=== PATIENT | male | born 1975 | race Caucasian/White ===

== ENCOUNTER 2017-11-20 17:11 | Observation (INO) | payer MEDICAID ==
[~2017-11-20] VITALS: Ht 175.3 cm; Wt 84.1 kg
[~2017-11-20 17:11] MED LIST: DIGO125T97 PO; METO50TA17 PO
[2017-11-20] MEDS ORDERED: normal saline 1000ml 1,000 ML IV ONE (17:23)
[2017-11-20] MEDS ORDERED: normal saline 1000ML IV soln IVB ONE (17:25)
[2017-11-20] MEDS ORDERED: LORazepam 2 mg/ml vial IV ONE (17:25)
[2017-11-20 17:46] LABS: BASOPHILS % (AUTO) 0.2 % (0-1); EOSINOPHILS % (AUTO) 0.1 % (0-6); HEMATOCRIT 45.8 % (42.0-52.0); HEMOGLOBIN 15.5 g/dl (14.0-17.9); LYMPHOCYTES # (AUTO) 0.8 X10'3 (1.1-4.8); LYMPHOCYTES % (AUTO) 5.3 % (21-51); MEAN CORPUSCULAR HEMOGLOBIN 30.4 PG (27.0-31.0); MEAN CORPUSCULAR HGB CONC 33.8 % (33.0-36.5); MEAN PLATELET VOLUME 7.4 FL (7.4-10.4); MONOCYTES # (AUTO) 0.5 X10'3 (0-0.9); MONOCYTES % (AUTO) 3.2 % (2-12); NEUTROPHILS # (AUTO) 13.7 X10'3 (1.8-7.7); NEUTROPHILS % (AUTO) 91.2 % (42-75); PLATELET COUNT 143 X10'3 (140-440); RED BLOOD COUNT 5.09 X10'6 (4.70-6.10); RED CELL DISTRIBUTION WIDTH 13.5 % (11.5-14.5)
[2017-11-20 17:55] LABS: PARTIAL THROMBOPLASTIN TIME 24 SECONDS (22-32)
[2017-11-20 18:08] LABS: ALANINE AMINOTRANSFERASE 46 U/L (12-78); ALBUMIN 4.2 G/DL (3.4-5.0); ALBUMIN/GLOBULIN RATIO 1.4 (1.1-1.5); ALKALINE PHOSPHATASE 81 IU/L (46-116); ANION GAP 14 (8-16); ASPARTATE AMINO TRANSFERASE 26 U/L (10-37); BILIRUBIN,TOTAL 1.5 MG/DL (0.1-1.0); BLOOD UREA NITROGEN 20 MG/DL (7-18); BUN/CREATININE RATIO 15.7 (5.4-32.0); CALCIUM 9.5 MG/DL (8.5-10.1); CHLORIDE 106 MMOL/L (99-107); CREATINE KINASE 205 U/L (39-308); CREATININE 1.27 MG/DL (0.60-1.10); ETHANOL < 0.010 GM/DL (0.0-0.010); GLUCOSE 153 MG/DL (70-104); MAGNESIUM 1.8 MG/DL (1.5-2.4); SODIUM 145 MMOL/L (135-145); TOTAL CARBON DIOXIDE 24.7 MMOL/L (24-32); TOTAL PROTEIN 7.3 G/DL (6.4-8.2); eGFR 62 ML/MIN
[2017-11-20] MEDS ORDERED: DABI150C PO (19:38)
[2017-11-20] MEDS ORDERED: METO-539 PO (19:38)
[2017-11-20] MEDS ORDERED: PROP325C PO (19:38)
[2017-11-20] MEDS ORDERED: temazepam 15mg capsule PO PRN (21:00)
[2017-11-20] MEDS ORDERED: acetaminophen 325mg tablet PO PRN (21:10)
[2017-11-20] MEDS ORDERED: morphine 4 MG/ML inj SYRINge IV PRN (21:10)
[2017-11-20] MEDS ORDERED: magnesium hydroxide 30ml (MOM) UD suspension PO PRN (21:10)
[2017-11-20] MEDS: metoprolol succinate 25mg (24-HOUR) SR. Tablet PO SCH (21:48)
[2017-11-20 21:55] LABS: CLARITY,URINE SLIGHTLY CLOUDY (Clear); COLOR,URINE YELLOW (Yellow); GLUCOSE, URINE NEGATIVE (Neg); KETONES,URINE 15 mg/dl (Neg); LEUKOCYTE ESTERASE ,URINE NEGATIVE (Neg); NITRITES, URINE NEGATIVE (Neg); OCCULT BLOOD,URINE NEGATIVE (Neg); PROTEIN,URINE TRACE mg/dl (Neg); UROBILINOGEN,URINE 0.2 E.U/dL (0.2-1.0)
[2017-11-20 21:58] LABS: UA COLLECTION TYPE URINAL
[2017-11-20 22:01] LABS: AMORPHOUS PHOSPHATES 2+; SQUAMOUS EPITHELIAL CELL,UR FEW /LPF (FEW); WBC,URINE 0-4 /HPF (0-4)
[2017-11-20 22:02] LABS: BACTERIA,URINE NONE SEEN /HPF (Neg); MUCUS STRANDS FEW /LPF (Neg); RBC,URINE 0-2 /HPF (0-2); URINE AMPHETAMINE SCREEN NEGATIVE (Neg); URINE BARBITUATE SCREEN NEGATIVE (Neg); URINE BENZODIAZEPINES SCREEN NEGATIVE (Neg); URINE CANNABINOID SCREEN POSITIVE (Neg); URINE COCAINE SCREEN NEGATIVE (Neg); URINE METHADONE SCREEN NEGATIVE (Neg); URINE OPIATE SCREEN NEGATIVE (Neg); URINE PHENCYCLIDINE SCREEN NEGATIVE (Neg)
[2017-11-20] MEDS: propafenone 150mg tablet PO SCH (22:53)
[2017-11-20] MEDS ORDERED: proCHLORperazine 5mg tablet PO PRN (23:20)
[2017-11-20 23:22] VITALS: BP 146/94
[2017-11-20] MEDS: LORazepam 0.5 MG tablet PO PRN (23:45)
[2017-11-21] MEDS: proCHLORperazine 10 MG/2 ml inj IV PRN ×3 (00:25→20:14)
[2017-11-21] MEDS: ondansetron/PF 4mg/2ml inj IV PRN ×2 (02:03→22:59)
[2017-11-21 03:00] VITALS: BP 105/70
[2017-11-21 06:00] VITALS: BP 106/64
[2017-11-21 06:24] LABS: BASOPHILS % (AUTO) 0 % (0-1); EOSINOPHILS # (AUTO) 0.2 X10'3 (0-0.9); EOSINOPHILS % (AUTO) 1.6 % (0-6); HEMOGLOBIN 14.6 g/dl (14.0-17.9); LYMPHOCYTES # (AUTO) 0.8 X10'3 (1.1-4.8); LYMPHOCYTES % (AUTO) 6.3 % (21-51); MEAN CORPUSCULAR HEMOGLOBIN 30.4 PG (27.0-31.0); MEAN CORPUSCULAR VOLUME 89.6 FL (78-98); MONOCYTES # (AUTO) 0.5 X10'3 (0-0.9); MONOCYTES % (AUTO) 4.1 % (2-12); PLATELET COUNT 138 X10'3 (140-440); RED CELL DISTRIBUTION WIDTH 13.6 % (11.5-14.5); WHITE BLOOD COUNT 12.5 X10'3 (4.5-11.0)
[2017-11-21 06:49] LABS: ALBUMIN 3.9 G/DL (3.4-5.0); ANION GAP 11 (8-16); BLOOD UREA NITROGEN 19 MG/DL (7-18); BUN/CREATININE RATIO 18.1 (5.4-32.0); CALCIUM 9.1 MG/DL (8.5-10.1); CHLORIDE 106 MMOL/L (99-107); CREATININE 1.05 MG/DL (0.60-1.10); GLUCOSE 131 MG/DL (70-104); POTASSIUM 3.6 MMOL/L (3.5-5.1); SODIUM 143 MMOL/L (135-145); TOTAL CARBON DIOXIDE 25.8 MMOL/L (24-32); eGFR 77 ML/MIN
[2017-11-21] MEDS: metoprolol succinate 25mg (24-HOUR) SR. Tablet PO SCH (08:24)
[2017-11-21] MEDS: propafenone 150mg tablet PO SCH ×2 (09:26→22:20)
[2017-11-21] MEDS: dabigatran 150mg capsule PO SCH ×2 (09:26→22:20)
[2017-11-21] MEDS: mag hydrox/Alum hydrox/simeth 30ml oral suspension PO PRN ×2 (09:42→22:19)
[2017-11-21 11:00] VITALS: BP 109/66
[2017-11-21] MEDS: LORazepam 0.5 MG tablet PO PRN (13:41)
[2017-11-21 15:00] VITALS: BP 117/70
[2017-11-21 18:00] VITALS: BP 168/83
[2017-11-21 22:00] VITALS: BP 113/76
[2017-11-22] VITALS (10 sets, daily range): BP systolic 108–119; BP diastolic 52–87
[2017-11-22 05:44] LABS: BASOPHILS % (AUTO) 0.2 % (0-1); EOSINOPHILS # (AUTO) 0.1 X10'3 (0-0.9); EOSINOPHILS % (AUTO) 1.2 % (0-6); HEMATOCRIT 42.2 % (42.0-52.0); HEMOGLOBIN 14.6 g/dl (14.0-17.9); LYMPHOCYTES # (AUTO) 1.9 X10'3 (1.1-4.8); MEAN CORPUSCULAR HEMOGLOBIN 30.7 PG (27.0-31.0); MEAN CORPUSCULAR HGB CONC 34.5 % (33.0-36.5); MEAN PLATELET VOLUME 7.8 FL (7.4-10.4); MONOCYTES # (AUTO) 0.9 X10'3 (0-0.9); MONOCYTES % (AUTO) 7.4 % (2-12); NEUTROPHILS # (AUTO) 8.9 X10'3 (1.8-7.7); NEUTROPHILS % (AUTO) 75.2 % (42-75); PLATELET COUNT 139 X10'3 (140-440); RED BLOOD COUNT 4.74 X10'6 (4.70-6.10); RED CELL DISTRIBUTION WIDTH 13.6 % (11.5-14.5); WHITE BLOOD COUNT 11.8 X10'3 (4.5-11.0)
[2017-11-22 06:08] LABS: ALBUMIN 3.8 G/DL (3.4-5.0); ANION GAP 9 (8-16); BLOOD UREA NITROGEN 21 MG/DL (7-18); BUN/CREATININE RATIO 17.5 (5.4-32.0); CALCIUM 8.9 MG/DL (8.5-10.1); CHLORIDE 106 MMOL/L (99-107); GLUCOSE 95 MG/DL (70-104); POTASSIUM 3.7 MMOL/L (3.5-5.1); SODIUM 143 MMOL/L (135-145); TOTAL CARBON DIOXIDE 28.5 MMOL/L (24-32); eGFR 66 ML/MIN
[2017-11-22] MEDS: propafenone 150mg tablet PO SCH (08:00)
[2017-11-22] MEDS: metoprolol succinate 25mg (24-HOUR) SR. Tablet PO SCH (08:00)
[2017-11-22] MEDS ORDERED: metoprolol tartrate 1mg/ml inj IV PRN (08:10)
[2017-11-22] MEDS ORDERED: regadenoson 0.4mg/5ml syringe IV ONE ×2 (08:10→09:05)
[2017-11-22] MEDS ORDERED: nitroGLYCERIN 0.4mg SUBLingual tab SL PRN (08:10)
[2017-11-22] MEDS ORDERED: CAFFEINE CITRATE 60 MG/3 ML injection vial IV PRN (08:10)
[2017-11-22] MEDS ORDERED: CAFFEINE CITRATE 60 MG/3 ML injection vial IV ONE (09:05)
[2017-11-22] MEDS ORDERED: ondansetron/PF 4mg/2ml inj ONE (09:26)
[2017-11-22] MEDS: ondansetron/PF 4mg/2ml inj IV PRN (09:27)
[2017-11-22] MEDS: dabigatran 150mg capsule PO SCH (11:42)
== END 2017-11-22 15:10 | disposition home or self-care (01) ==
LOC: ER 17:11 → ED HOLD 21:50 → PCU 3S 22:30
PROVIDERS: ADMIT Family Medicine; ATTEND Internal Medicine
DX: R07.89 Other chest pain (principal); I48.91 Unspecified atrial fibrillation; I10 Essential (primary) hypertension; D72.829 Elevated white blood cell count, unspecified; R10.9 Unspecified abdominal pain; R11.0 Nausea; F12.90 Cannabis use, unspecified, uncomplicated
CPT/HCPCS: 36415; 71045; 78452; 80048; 80053; 80162; 80305; 80320; 81001; 82550; 83735; 83874; 83880; 84484; 85025; 85610; 85730; 87070; 93017; 96361; 96374; 96375; 96376; 99285; A9500; G0378; J0780; J2060; J2405; J7030; Q0164; A6250